=== PATIENT | female | born 1985 | race Caucasian/White ===

== ENCOUNTER → 2019-06-11 07:27 | Outpatient (CLI) | payer OTHER, SELFPAY ==
--- NOTE | ~2019-06-11 | US_ITS ---
EXAMINATION: US right upper quadrant DATE: 06/11/2019 08:12 INDICATION: Nausea and vomiting TECHNIQUE: Multiple grayscale and Doppler ultrasound images of the abdomen were obtained. COMPARISON: None FINDINGS: Abdominal aorta is normal in caliber measuring 1.3 cm proximally, 1.1 cm the mid aorta and tapering t o 0.9 cm at the distal aorta. The pancreas is normal. Liver has normal echogenicity and contour, with a smooth surface. No liver lesion identified. No intrahepatic biliary duct dilation suspected. Conchis l venous flow was seen in the hepatopetal, normal direction and has normal Doppler waveform. Visualiz ed proximal to mid inferior vena cava is normal. There are several small nonmobile peripheral echogen ic nodules measuring up to 3 mm along the gallbladder wall most likely representing gallbladder polyp s. Gallbladder is otherwise normal. No shadowing cholelithiasis. Sonographic Dorman sign was reported as negative by the neighborhood worker. The common bile duct measures 4 mm which is normal. Right kidney rina sures 8.2 x 3.5 x 5.0 cm with normal contour and echogenicity. No hydronephrosis. IMPRESSION: 1. Multiple likely benign <4 mm gallbladder polyps. Otherwise normal right upper quadrant ultrasound. Reviewed, dictated and finalized at location A. IMPRESSION: 1. Multiple likely benign <4 mm gallbladder polyps. Otherwise normal right uppe r quadrant ultrasound.
== END ==
PROVIDERS: PCP Family Medicine; Visit Provider Family Medicine
DX: R11.2 Nausea with vomiting, unspecified (principal); K82.4 Cholesterolosis of gallbladder
CPT/HCPCS: 76705

== ENCOUNTER 2019-07-18 08:37 | Outpatient (CLI) | payer OTHER, SELFPAY ==
--- NOTE | ~2019-07-18 | MR_ITS ---
EXAMINATION: MR brain/brain stem wo con DATE: 07/18/2019 09:25 INDICATION: Headaches and recurrent episodic vomiting. TECHNIQUE: Magnetic resonance imaging (MRI) of the brain and brainstem was performed without intraven ous contrast. Sequences included sagittal and axial T1-weighted SE, axial diffusion-weighted FS SE, a xial T2*-weighted GRE, axial T2-weighted FLAIR, and axial T2-weighted FSE. Apparent diffusion coeffic ient (ADC) maps were created. COMPARISON: None. FINDINGS: There are no areas of restricted diffusion to suggest acute infarction. No intracranial hemorrhage or abnormal intracranial mass lesion. There are no intraparenchymal signal abnormalities seen on the ot her pulse sequences. The ventricles are symmetric and normal in size. There are no abnormal extra-axi al fluid collections. Flow voids are seen in the cerebral arteries on the T2-weighted sequences consi stent with their expected patency. Mild mucoperiosteal thickening in the left frontal and bilateral e thmoid and maxillary sinuses. Visualized orbits and soft tissues are unremarkable. There are no areas of abnormal enhancement on the post contrast images. IMPRESSION: 1. Normal brain. Reviewed, dictated and finalized at location A. IMPRESSION: 1. Normal brain.
== END 2019-07-18 08:38 | disposition home or self-care (01) ==
PROVIDERS: PCP Family Medicine; Visit Provider Family Medicine
DX: R11.2 Nausea with vomiting, unspecified (principal)
CPT/HCPCS: 70551

== ENCOUNTER 2019-08-15 14:53 | Outpatient (CLI) | payer OTHER, SELFPAY ==
[2019-08-15 15:09] LABS: Hematocrit 38.2 % (37.0-47.0); Hemoglobin 12.1 g/dL (12.0-15.0); Mean Corpuscular HGB Conc 31.7 g/dl (32-36); Mean Corpuscular Hemoglobin 26.7 pg (26-34); Mean Corpuscular Volume 84.1 fl (80-100); Platelet Count Result 280 k/mm3 (150-375); Red Blood Count 4.54 M/mm3 (4.2-5.4); Red Cell Distribution Width 13.2 % (11.5-14.5); White Blood Count 14.5 K/mm3 (4.5-10.0)
[2019-08-15 15:20] LABS: Alanine Aminotransferase 22 U/L (4-35); Albumin Level 4.4 g/dL (3.5-5.1); Alkaline Phosphatase 38 U/L (38-126); Aspartate Amino Transferase 25 U/L (14-36); Bilirubin,Total 0.3 mg/dL (0.2-1.3); Blood Urea Nitrogen 10 mg/dL (7-17); Calcium 9.3 mg/dL (8.4-10.2); Carbon Dioxide 25 mmol/L (22-30); Chloride 105 mmol/L (98-107); Estimated Glomerular Filt Rate > 60; Glucose 94 mg/dL (65-105); Potassium 4.1 mmol/L (3.4-5.0); Sodium 137 mmol/L (137-145)
== END 2019-08-15 14:54 | disposition home or self-care (01) ==
PROVIDERS: PCP Family Medicine; Visit Provider Internal Medicine Gastroenterology
DX: R11.0 Nausea (principal)
CPT/HCPCS: 36415; 80053; 85027

== ENCOUNTER 2019-08-26 00:18 | Outpatient (CLI) | payer OTHER, SELFPAY ==
[2019-08-26 17:48] LABS: SARS-CoV-2 RNA PCR Negative
== END 2019-08-26 00:19 | disposition home or self-care (01) ==
LOC: ANHCOVIDDT 00:18
PROVIDERS: PCP Family Medicine; Visit Provider Internal Medicine Gastroenterology
DX: Z01.812 Encounter for preprocedural laboratory examination (principal); Z20.828 Contact with and (suspected) exposure to other viral communicable diseases
CPT/HCPCS: 87635; C9803; U0003

== ENCOUNTER 2019-08-29 01:36 | Day surgery (SDC) | payer OTHER, SELFPAY ==
[2019-08-23 14:38] VITALS: BMI 23.8
[2019-08-29 06:48] VITALS: BP 116/68; PULSE 91; RESP 18; TEMP 36.9; O2SAT 99
[2019-08-29] MEDS: LACTATED RINGERS 1,000 ML 150 ML IV CONT (06:58)
--- NOTE | 2019-08-29 07:44 | P.PNAN_ITS ---
Anes - Initial Pre Proc Eval Procedure: Operation Date: 08/29/19 08:00 Proposed Procedures p Esophagogastroduodenoscopy - Davion Dallas MD Date/Time: 08/29/19 07:44 Surgeon: Davion Dallas MD Pre Op Diagnosis: Vomiting Patient Data Age: 34 Gender: F Height: 5 ft 4 in Weight: 63.1 kg Last Vital Signs Temp 36.9 C 08/29/19 06:48 Pulse 91 08/29/19 06:48 Resp 18 08/29/19 06:48 BP 116/68 08/29/19 06:48 Pulse Ox 99 08/29/19 06:48 Allergies Allergy/AdvReac Type Severity Reaction Status Date / Time No Known Allergies Allergy Unknown Verified 08/29/19 06:45 Home Medications Medication Instructions Recorded Confirmed Type etonogestrel-ethinyl estradiol 1 vag ring VAGINAL MONTHLY 08/23/19 08/23/19 History [NuvaRing] Patient hx anesthesia problems: none Family hx anesthesia problems: none [facility] Past Medical History Medical History (Updated 08/29/19 @ 07:44 by Chano Cano MD) Nausea and vomiting Surgical History Surgical History (Updated 08/29/19 @ 07:45 by Chano Cano MD) History of laparoscopy Anes - Eval Final PreProcedure Day of Procedure 08/29/19 07:44 Patient weight: normal Heart: regular rate and rhythm Lungs: clear to auscultation Airway: Mallampati scale class II Neurological: alert and oriented Last oral intake: >/= 8 hours ASA classification: I Emergent: no Anesthetic plan: proceed Anesthesia type and monitoring: general GIVS and standard monitoring Informed Consent: The patient's anesthetic plan and its attendant risks and benefits were discussed with the patient/family/POA. Questions were solicited and answers provided to the satisfaction of the patient/family/POA.
--- NOTE | 2019-08-29 07:51 | P.CONGI_ITS ---
Assessment and Plan Assessment and plan (1) Vomiting: Code(s): R11.10 - Vomiting, unspecified Status: Acute Assessment and Plan: Recurrent vomiting appears recurrent over the last 1 and half years. Etiology remains unclear. Cannot exclude cyclical vomiting. Plan is to further evaluate with an EGD. Workup today including gallbladder ultrasound laboratory tests are unremarkable. Patient has had difficulty was Zofran causing her to become constipated. We may want to consider brief course of Reglan. Elevating head of bed at night bland foods in the interim. GI Consult Note Consult date/time: 08/29/19 07:51 HPI: Giana Gonzalez is a 34 year old female Seen in evaluation at the request of Dr. Jose Maria Lomax. Patient reports recurrent vomiting intermittently over last 1-1/2 years. She will become nauseated 2 to 3 times a week. Typically lasting for a few hours. She usually vomits at least 1 time a week. Off and on an empty stomach without having any eaten. She denies any bleeding. She denies any fever. She denies any weight loss. Her family history is non contributory. She reports no recent travel. Review of Systems Review of Systems: All systems reviewed & are unremarkable except as noted in HPI and below PMFSH Surgical History Surgical History History of laparoscopy Meds Home Medications and Allergies Home Medications Medication Instructions Recorded Confirmed Type etonogestrel-ethinyl estradiol 1 vag ring VAGINAL MONTHLY 08/23/19 08/23/19 History [NuvaRing] Allergies Allergy/AdvReac Type Severity Reaction Status Date / Time No Known Allergies Allergy Unknown Verified 08/29/19 06:45 Vital Signs Vital Signs - 24 hr 08/29/19 06:48 Temperature 36.9 C Pulse Rate 91 Respiratory Rate 18 Blood Pressure 116/68 Pulse Oximetry 99 Exam Narrative: Exam Narrative: Physical exam reveals patient to be alert. Oriented x3. She is anicteric. Vital signs stable. Lungs are clear to auscultation and percussion. Heart without murmur. Abdomen bowel sounds are present soft nontender with no hepatosplenomegaly. Recent ultrasound of the right upper quadrant revealed the gallbladder polyp less than 4mm size.
[2019-08-29] MEDS: BENZOCAINE (*SP) 60 ML SPRAY CAN (HURRICAINE) 1 SPRAY MUCOUS MEM (08:00)
[2019-08-29 08:18] VITALS: BP 102/59; PULSE 84; RESP 16; O2SAT 99
[2019-08-29 08:28] VITALS: BP 100/60; PULSE 79; RESP 18; O2SAT 99
[2019-08-29 08:38] VITALS: BP 110/71; PULSE 75; RESP 17; O2SAT 100
== END 2019-08-29 08:49 | disposition home or self-care (01) ==
PROVIDERS: PCP Family Medicine; Visit Provider Internal Medicine Gastroenterology
PROC: 0DJ08ZZ Inspection of Upper Intestinal Tract, Via Natural or Artificial Opening Endoscopic (ICD-10-PCS; CPT 43235; principal; 2019-08-29 08:00)
DX: K31.84 Gastroparesis (principal)
CPT/HCPCS: 43235; J2001; J2704; J7120

== ENCOUNTER 2019-10-12 07:23 | Outpatient (CLI) | payer OTHER, SELFPAY ==
--- NOTE | ~2019-10-12 | NM_ITS ---
EXAM: NM gastric emptying study DATE: 10/12/2019 12:42 INDICATION: Nausea. TECHNIQUE: A gastric emptying study was performed using the methodology of Srinivasa BELTRAN, et al. J Nucl Med 2007; 48:568-572. The patient was given a meal consisting of 2 scrambled eggs labeled with 1 mCi Tc-99m sulfur colloid, 2 slices of toast, two packages of jam, and approximately 120 mL of water. Si multaneous anterior and posterior 1-min images of the abdomen were obtained with the patient supine a t multiple time points over a total period of 4 hours. The geometric mean of anterior and posterior v iews was determined, and the percentage retention was calculated for each time point. COMPARISON: None. FINDINGS: Gastric retention of the radiotracer-labeled meal was 58%, 26%, and 8% at the 1-hour, 2-ho ur, and 4-hour time points, respectively. With this technique, apparent rapid gastric emptying is sug gested by <30% gastric retention at 1 hour. Delayed gastric emptying is defined by gastric retention of >90% at 1 hour, >60% retention at 2 hours, or >10% retention at 4 hours. IMPRESSION: 1. Normal gastric emptying. Reviewed, dictated and finalized at location A. IMPRESSION: 1. Normal gastric emptying.
== END 2019-10-12 07:24 | disposition home or self-care (01) ==
LOC: ANHIMG 07:27
PROVIDERS: PCP Family Medicine; Visit Provider Internal Medicine Gastroenterology
DX: R11.0 Nausea (principal)
CPT/HCPCS: 78264; A9541

== ENCOUNTER 2022-07-07 01:31 | Day surgery (SDC) | payer OTHER, SELFPAY ==
[2022-06-26 14:58] VITALS: BMI 22.3
--- NOTE | 2022-06-26 15:03 | PC.NURSE ---
Report to the Outpatient Waiting Room, entrance under the green pavilion located off [facility], at time 0730 on date 07/07/22. Planned Procedure Time: 0930. Time changes happen often and if your time is changed the preop area will call you the afternoon before. - You and your visitor will be asked to self-screen and do not enter if you have any COVID symptoms. - A mask is optional within the hospital at this time. Patients may have clear liquids (water, carbonated beverages, clear teas, apple juice) until 3 hours prior to surgery with a maximum of 20 ounces. - No food from midnight until time of surgery Take the following medications with a SIP of water the morning of surgery: NONE DO NOT STOP ANY OF YOUR OTHER PRESCRIPTION MEDICATIONS PRIOR TO SURGERY EXCEPT THE FOLLOWING Medications to discontinue per physician: VITAMINS Date to take last dose: 07/03/22 Please no make-up, nail uruguayan, hairspray, perfume, deodorant, or body powder the day of surgery. No jewelry (including any body piercings) or valuables the day of surgery, leave them at home. Please take a shower or bath the night before, or the morning of, surgery with an antibacterial soap. Wear comfortable, loose fitting clothing. - Jewelry must be removed prior to entering the operating room. Rings and piercings that are not removed may be cut off. - The hospital will not accept responsibility for valuables. - Please leave all valuables, including medications, at home the day of surgery. If you are going home after surgery, a licensed commercial driver must drive you home. - NO public transportation without another adult if you receive anesthesia. - We recommend that an adult stay with you for 24 hours following discharge. - We also recommend that you do not drive, make important decision, drink alcoholic beverages, or take any drugs that were not prescribed by your health care provider for at least 24 hours after your discharge time. Follow any additional instructions given to you from your surgeon. If you or anyone in your household have experienced Covid symptoms in the past week, please notify your surgeon or the nurse liaison at the phone number below for possible testing. Telephone instructions given to PT - JOSE MANUEL STORM and asked if any additional questions and then verbalized understanding. Patient advised to call surgeon office or pre surgery nurse liaison [phone] if any additional questions.
[2022-07-07] VITALS (8 sets, daily range): BP systolic 95–116; BP diastolic 51–77; PULSE 54–81; RESP 12–20; TEMP 36.5–37; O2SAT 100
--- NOTE | 2022-07-07 07:14 | WPDHPUPDATE1 ---
History and Physical Update Update Date/Time: 07/07/22 07:14 History and Physical has been reviewed, including an updated exam of the patient. There are NO changes in the patient's condition. Risks, benefits, and alternatives have been discussed and questions answered. Patient agrees to proceed with procedure.
--- NOTE | 2022-07-07 07:14 | PM.HPGS ---
History of Present Illness History of Present Illness Consent: Risks, benefits, and alternatives have been discussed and questions answered. Patient agrees to proceed with procedure. Chief complaint: sterilization Narrative: Giana Gonzalez is a 37 year old female who has completed her childbearing and wishes to proceed with sterilization. Risks of infection, bleeding injury to internal organs, and failure with increased risk of ectopic are reviewed. Plan is to proceed with laparoscopic bilateral salpingectomy. Due to her history of prior laparoscopy with endometriosis in 2011 it was discussed that we would possibly just remove a portion of the tube if there is significant scarring. Review of Systems Review of Systems: not repeated day of surgery; patient states no changes in status PMFSH Past Medical History Medical History (Updated 07/07/22 @ 07:17 by Radha Veliz MD) Anxiety and depression (normal spontaneous vaginal delivery) x2 Surgical History Surgical History (Updated 07/07/22 @ 07:16 by Radha Veliz MD) History of laparoscopy endometriosis History of tonsillectomy Family History Family History (Updated 04/07/22 @ 13:26 by Mariel Polk MA) Father Pancreatic cancer Mother No problems noted. Social History Social History (Updated 04/07/22 @ 13:53 by Jose Maria Lomax MD) Years smoked: 16 Smoking status: Former smoker Tobacco type: cigarettes Smoking end date: 06/14/22 Additional smoking assessment comments: Smoked about 5 cigarettes per day for 15 years Alcohol intake: current Drinks per week: 1 Alcohol use details: RARE Substance use: current Substance use type: marijuana Other substance usage details: VERY RARE - FOR SLEEP Lack of Transportation: No Lack of Food: Never True Current Housing: I Have Housing Concerned About Future Housing: No Difficulty Paying Gas/Electric Bills: No Difficulty Paying for Meds: No Currently Unemployed: No Education: Associate Degree Difficulty w/ Childcare or Family Care: No Living arrangements: with family Occupation/Education: occupation Gender identity (if verbalized by the patient): Female Sexual Orientation (if Verbalized by the Patient): Straight or Heterosexual Spiritual care concerns: No Agree to blood products: No Meds Home Medications and Allergies Home Medications Medication Instructions Recorded Confirmed Type etonogestrel 0.12 mg-ethinyl 1 vag ring vaginal MONTHLY 08/23/19 06/26/22 History estradiol 0.015 mg/24 hr vaginal ring (NuvaRing) cholecalciferol (vitamin D3) 50 50 mcg PO DAILY 04/07/22 06/26/22 History mcg (2,000 unit) capsule escitalopram oxalate 10 mg tablet 10 mg PO HS 04/07/22 06/26/22 History Allergies Allergy/AdvReac Type Severity Reaction Status Date / Time No Known Allergies Allergy Unknown Verified 06/26/22 14:57 Exam Const: General: healthy appearing and alert Orientation/consciousness: patient oriented x3 Resp: Effort & Inspection: normal respiratory effort GI: GI Palp: Yes Soft to palpation, No Tenderness to palpation present (GI) and No Palpable mass present : External Female Exam: normal external appearance Speculum Exam - Vagina: normal appearance of the vagina and normal vaginal discharge Speculum Exam - Cervix: normal appearance of the cervix Bimanual exam- vagina & uterus: uterine size normal and consistency normal Bimanual Exam- Adnexa, other: normal adnexae and No adnexal tenderness Neuro: General: patient oriented x3 Assessment and Plan Assessment and plan (1) Encounter for sterilization: Code(s): Z30.2 - Encounter for sterilization Status: Acute Assessment and Plan: plan to proceed with laparoscopic bilateral salpingectomy
--- NOTE | 2022-07-07 08:06 | WPDANESEPPF ---
Anes - Initial Pre Proc Eval Procedure: Operation Date: 07/07/22 09:30 Proposed Procedures p Laparoscopic Bilateral Salpingectomy - Radha Veliz MD Date/Time: 07/07/22 08:06 Surgeon: Radha Veliz MD Pre Op Diagnosis: sterilization Patient Data Age: 37 Gender: F Height: 1.64 m Weight: 60 kg Allergies Allergy/AdvReac Type Severity Reaction Status Date / Time No Known Allergies Allergy Unknown Verified 06/26/22 14:57 Home Medications Medication Instructions Recorded Confirmed Type etonogestrel 0.12 mg-ethinyl 1 vag ring vaginal MONTHLY 08/23/19 06/26/22 History estradiol 0.015 mg/24 hr vaginal ring (NuvaRing) cholecalciferol (vitamin D3) 50 50 mcg PO DAILY 04/07/22 06/26/22 History mcg (2,000 unit) capsule escitalopram oxalate 10 mg tablet 10 mg PO HS 04/07/22 06/26/22 History Patient hx anesthesia problems: none Family hx anesthesia problems: none Results Review: All pre-operative results and documents have been reviewed as part of the pre-operative evaluation. [facility] Past Medical History Medical History Anxiety and depression (normal spontaneous vaginal delivery) x2 Surgical History Surgical History History of laparoscopy endometriosis History of tonsillectomy Family History Family History Father Pancreatic cancer Mother No problems noted. Social History Social History Years smoked: 16 Smoking status: Former smoker Tobacco type: cigarettes Smoking end date: 06/14/22 Additional smoking assessment comments: Smoked about 5 cigarettes per day for 15 years Alcohol intake: current Drinks per week: 1 Alcohol use details: RARE Substance use: current Substance use type: marijuana Other substance usage details: VERY RARE - FOR SLEEP Lack of Transportation: No Lack of Food: Never True Current Housing: I Have Housing Concerned About Future Housing: No Difficulty Paying Gas/Electric Bills: No Difficulty Paying for Meds: No Currently Unemployed: No Education: Associate Degree Difficulty w/ Childcare or Family Care: No Living arrangements: with family Occupation/Education: occupation Gender identity (if verbalized by the patient): Female Sexual Orientation (if Verbalized by the Patient): Straight or Heterosexual Spiritual care concerns: No Agree to blood products: No Anes - Eval Final PreProcedure Day of Procedure 07/07/22 08:06 Patient weight: normal Heart: regular rate and rhythm Lungs: clear to auscultation Airway: Mallampati scale class II Neurological: alert and oriented Last oral intake: >/= 8 hours ASA classification: II Emergent: no Anesthetic plan: proceed Anesthesia type and monitoring: general ETT and standard monitoring Results Review: All pre-operative results and documents have been reviewed as part of the pre-operative evaluation. Informed Consent: The patient's anesthetic plan and its attendant risks and benefits were discussed with the patient/family/POA. Questions were solicited and answers provided to the satisfaction of the patient/family/POA.
[2022-07-07] MEDS: ACETAMINOPHEN 500 MG TABLET 1000 MG PO (08:30)
[2022-07-07] MEDS: KETOROLAC 15 MG/ML VIAL (*BKC) IV PUSH (08:30)
[2022-07-07] MEDS: LACTATED RINGERS 1,000 ML 30 ML IV CONT (08:30)
--- NOTE | 2022-07-07 10:14 | P.OP_ITS ---
Procedure Note - Detailed Date of Procedure 07/07/22 Pre-op Diagnosis sterilization Post-op Diagnosis Same Procedure Performed Laparoscopic bilateral salpingectomies Surgeon Radha Veliz MD Anesthesia General Findings normal-appearing tubes, uterus, ovaries Description of Procedure The patient is taken to the operating room and placed under anesthesia in the dorsal lithotomy position. She was prepped and draped in the usual sterile fashion. Bladder was drained with a red rubber catheter. Fairview speculum was placed in the vagina and the cervix grasped on the anterior lip with a tenaculum. The acorn manipulator was placed and the speculum removed. Attention was turned to the abdomen. A vertical skin incision was made at the base of the umbilicus. The abdomen is tented and the Veress needle placed. Water drop test is normal and opening patient pressure was 6mmHg. Pneumoperitoneum was obtained to a patient pressure of 15mmHg. The 5mm Optiview was placed while tenting the abdomen with towel clamps and intra- abdominal placement was confirmed with the laparoscope. The patient was placed in Trendelenburg and 2 5mm skin incision there made 2cm above symphysis pubis 1 to left 1 to the right. 5Mm trocars were placed under direct visualization. The blunt probe was used to bring the tubes into the visual field. The right tube was grasped with a grasper and using the LigaSure the mesosalpinx is cauterized and cut. The tube was then cross cut as the cornua was reached and the tube removed. The identical procedure was performed the left side. Good hemostasis is noted at all pedicles. The pneumoperitoneum is reduced. All instruments are removed. The skin incisions were closed using 4-0 nylon in an interrupted fashion. Sterile bandages are applied. Vaginal instruments are removed. Patient is awakened from anesthesia and taken to recovery in stable condition. Estimated Blood Loss 5 Drains No Packing No Pathology Yes ( Bilateral tubes) Complications No immediate complications Condition Stable Disposition PACU
[2022-07-07] MEDS: oxyCODONE HCL (*CRX) 5 MG TAB IR PO (11:28)
== END 2022-07-07 12:10 | disposition home or self-care (01) ==
PROVIDERS: PCP Family Medicine; Visit Provider Obstetrics & Gynecology Gynecology
PROC: (CPT 49320; principal; 2022-07-07 09:30)
DX: Z30.2 Encounter for sterilization (principal); F41.8 Other specified anxiety disorders; Z87.891 Personal history of nicotine dependence; F12.90 Cannabis use, unspecified, uncomplicated
CPT/HCPCS: 58661; 88302; A9270; J1100; J1170; J1885; J2250; J2405; J2704; J2710; J3010; J7120

== ENCOUNTER 2023-11-26 07:48 | Emergency (ER) | payer OTHER, SELFPAY ==
--- NOTE | ~2023-11-26 | CT_ITS ---
EXAMINATION: CT abdomen pelvis wo con DATE: 11/26/2023 10:16 INDICATION: Left flank pain. TECHNIQUE: Computed tomography (CT) of the abdomen and pelvis was performed without intravenous contr ast. Automated exposure control and iterative reconstruction technique were employed. The dose-length product was 199.40 mGy-cm. COMPARISON: None. FINDINGS: The visualized portions of the lung bases are clear without pneumonia or pleural effusion. The heart size is normal. No pericardial effusion. The liver, gallbladder, spleen, pancreas, adrenal glands, and right kidney are normal. There is mild left hydronephrosis and hydroureter. There is no u rolithiasis. There is a menstrual cup in the vagina. There are no dilated loops of bowel. The appendi x is normal. There are no pathologically enlarged lymph nodes. There is physiologic fluid in the pelv is. There is mild thoracic and lumbar spondylosis. IMPRESSION: 1. Mild left hydronephrosis and hydroureter secondary to mass effect from the menstrual cup in the va [place]. Reviewed, dictated and finalized at location A. IMPRESSION: 1. Mild left hydronephrosis and hydroureter secondary to mass effect from the m enstrual cup in the vagina.
[2023-11-26 07:51] VITALS: BP 119/80; PULSE 58; RESP 15; TEMP 36.6; O2SAT 100
[2023-11-26] MEDS: KETOROLAC 30 MG/ML VIAL (*BKC) IV PUSH (08:18)
[2023-11-26] MEDS: CYCLOBENZAPRINE HCL 10 MG TABLET PO (08:19)
[2023-11-26 08:25] LABS: Add Urine Microscopic? YES; Appearance Urine Clear (Clear); Bacteria Urine None Seen /hpf; Bilirubin Urine Negative (Negative); Blood Urine 3+ (Negative); Color Urine Yellow (Yellow); Glucose Urine UA Negative (Negative); Ketones Urine Negative (Negative); Leukocyte Esterase Ur Trace LEU/UL (Negative); Nitrate Urine Negative (Negative); Non Pathogenic Casts 0-2; Protein Urine Negative (Negative); Specific Grav Ur 1.003 (1.001-1.035); Squamous Epithelial Cell Urine None Seen /hpf (Few); Urobilinogen Urine 0.2 mg/dL (<2.0); WBC Urine 0-5 /hpf (0-3); pH Urine 7.5 (5.0-9.0)
[2023-11-26 08:30] LABS: Alanine Aminotransferase 15 U/L (6-35); Albumin Level 4.5 g/dL (3.5-5.1); Alkaline Phosphatase 36 U/L (38-126); Anion Gap 10 mmol/L (4-12); Aspartate Amino Transferase 23 U/L (14-36); Bilirubin,Total 0.6 mg/dL (0.2-1.3); Blood Urea Nitrogen 10 mg/dL (7-17); Calcium 9.2 mg/dL (8.4-10.2); Carbon Dioxide 24 mmol/L (22-30); Chloride 104 mmol/L (98-107); Estimated CRCL calculation 65 ml/min; Estimated Glomerular Filt Rate > 60; Glucose 96 mg/dL (65-110); Potassium 3.9 mmol/L (3.4-5.0); Sodium 138 mmol/L (137-145)
[2023-11-26 08:31] LABS: Basophils Absolute Auto 0.1 K/mm3 (0.0-0.1); Eosinophils Absolute Auto 0.3 K/mm3 (0-0.3); Eosinophils Percent Auto 5.4 % (0-4.4); Hematocrit 37.7 % (37.0-47.0); Hemoglobin 11.8 g/dL (12.0-15.0); Immature Granulocyte Absolute 0.03 K/mm3 (0.00-0.031); Immature Granulocyte Percent A 0.6 % (0-0.5); Lymphocytes Absolute Auto 1.52 K/mm3 (0.9-3.2); Lymphocytes Percent Auto 29.3 % (18.3-44.2); Mean Corpuscular HGB Conc 31.3 g/dl (32-36); Mean Corpuscular Hemoglobin 27.2 pg (26-34); Mean Corpuscular Volume 86.9 fl (80-100); Mean Platelet Volume 10.2 fl (7.4-10.4); Monocytes Absolute Auto 0.4 K/mm3 (0.1-0.6); Monocytes Percent Auto 6.8 % (2.6-8.5); Neutrophils Percent Auto 56.9 % (45.5-73.1); Platelet Count Result 244 k/mm3 (150-375); Red Blood Count 4.34 M/mm3 (4.2-5.4); Red Cell Distribution Width 14.9 % (11.5-14.5); White Blood Count 5.2 K/mm3 (4.5-10.0)
--- NOTE | 2023-11-26 09:19 | ED.BACK ---
HPI - Back Pain/Injury General Chief Complaint: Back Pain/Injury Stated Complaint: left flank pain Time Seen by Provider: 11/26/23 07:59 History of Present Illness HPI Narrative: Patient is a 38-year-old female who presents ER with left-sided back pain. Sudden onset this morning. Worse with bending and twisting. Reports she has had increased activity over last couple days. No known trauma. No numbness or tingling going down the leg. No fevers or chills or sweats. Denies abdominal pain/nausea/vomiting. Parents only on her menstrual cycle. Has not had a kidney stone previously. Related Data Home Medications Medication Instructions Recorded Confirmed cholecalciferol (vitamin D3) 50 50 mcg PO DAILY 04/07/22 07/07/22 mcg (2,000 unit) capsule Allergies Allergy/AdvReac Type Severity Reaction Status Date / Time No Known Allergies Allergy Unknown Verified 11/26/23 07:54 Review of Systems Review of Systems: All systems reviewed & are unremarkable except as noted in HPI and below Constitutional: Constitutional: Reports no additional constitutional complaints Cardiovascular: Cardiovascular: Reports no additional cardiovascular complaints Respiratory: Respiratory: Reports no additional respiratory complaints Gastrointestinal: Gastrointestinal: Reports no additional gastrointestinal complaints Musculoskeletal: Musculoskeletal: Reports back pain, Denies arthralgias and Denies joint swelling PMFSH Past Medical History Medical History (Updated 11/26/23 @ 10:44 by Martín Zamora MD) Anxiety and depression Surgical History Surgical History History of laparoscopy endometriosis History of tonsillectomy Family History Family History Father Pancreatic cancer Mother No problems noted. Social History Social History (Updated 11/28/22 @ 14:02 by Kelley Womack RN) Years smoked: 16 Smoking status: Current every day smoker Tobacco type: cigarettes Additional smoking assessment comments: Smoking 3 cig/day Alcohol intake: current Drinks per week: 1 Alcohol use details: RARE Substance use: current Substance use type: marijuana Other substance usage details: VERY RARE - FOR SLEEP Lack of Transportation: No Lack of Food: Never True Current Housing: I Have Housing Concerned About Future Housing: No Difficulty Paying Gas/Electric Bills: No Difficulty Paying for Meds: No Currently Unemployed: No Education: Associate Degree Difficulty w/ Childcare or Family Care: No Living arrangements: with family Occupation/Education: occupation Gender identity (if verbalized by the patient): Female Sexual Orientation (if Verbalized by the Patient): Straight or Heterosexual Spiritual care concerns: No Agree to blood products: No Exam Narrative: GENERAL: Well-appearing, well-nourished, and in no acute distress. HEAD: Normocephalic, atraumatic. ENT: Mucous membranes moist. CHEST: Clear to auscultation. No respiratory distress. HEART: Regular rate and rhythm. Normal peripheral pulses. ABDOMEN: Soft, nontender, nondistended. Back: No midline tenderness of the T/L-spine. There is left paraspinal muscle tenderness at the level of L3 fairly lateral from the midline. EXTREMITIES: Normal range of motion. No edema. SKIN: Warm, dry, no rash. NEURO: Alert and oriented x3. PSYCH: Normal mood and affect. Course Course Emergency Course: 920: Pain treated with Toradol and Flexeril. Cbc unremarkable as is the CMP. Urinalysis with trace blood felt to be contaminant from patient's menstrual cycle. Patient then got up to use restroom in developed severe pain radiating into left lower quadrants will perform CT scan. 1042: Hydroureter caused by menstrual cup obstructing ureter. Patient educated and will remove her menstrual cup resolved issue.
[2023-11-26 09:23] VITALS: BP 103/67; PULSE 52; RESP 16; O2SAT 100
[2023-11-26 10:08] LABS: BEDSIDEPREGUCG Negative (Negative)
== END 2023-11-26 10:48 | disposition home or self-care (01) ==
PROVIDERS: Emergency Provider Emergency Medicine; PCP Family Medicine
DX: F17.210 Nicotine dependence, cigarettes, uncomplicated (principal); M54.9 Dorsalgia, unspecified; N13.4 Hydroureter
CPT/HCPCS: 36415; 74176; 80053; 81001; 81025; 85025; 96374; 99284; A9270; J1885

== ENCOUNTER 2023-12-31 14:17 | Outpatient (CLI) | payer OTHER, SELFPAY ==
--- NOTE | ~2023-12-31 | US_ITS ---
EXAMINATION: US transvaginal INDICATION: Left lower quadrant pain Comparison:Left lower quadrant pain TECHNIQUE: Multiple endovaginal sonographic images of the pelvis performed. FINDINGS: The uterus measures 7.9 x 5.1 x 3.7 cm. The endometrial complex measures 2 mm. The right ovary measures 3.2 x 1.5 x 1.9 cm and the left ovary measures 2.4 x 2.1 x 2.1 cm. There ar e small follicles in each ovary. Normal doppler signal in both ovaries. There is no free fluid in the pelvis. There are no abnormal masses seen on either side. IMPRESSION: 1. Unremarkable pelvic ultrasound. Reviewed, dictated and finalized at location B.
== END 2023-12-31 14:18 | disposition home or self-care (01) ==
LOC: MICIMG 14:18
PROVIDERS: PCP Family Medicine; Visit Provider Advanced Practice Midwife
DX: R10.2 Pelvic and perineal pain (principal); N94.11 Superficial (introital) dyspareunia; N94.6 Dysmenorrhea, unspecified
CPT/HCPCS: 76830

== ENCOUNTER 2024-03-02 13:53 | Outpatient (CLI) | payer OTHER, SELFPAY ==
--- NOTE | ~2024-03-02 | CT_ITS ---
EXAMINATION: CT abdomen pelvis wo/w con DATE: 03/02/2024 14:31 INDICATION: Hydronephrosis. TECHNIQUE: Computed tomography (CT) of the abdomen and pelvis was performed without and with intraven ous contrast using a total of 130 mL Omnipaque-350 intravenous contrast with a double-bolus technique for simultaneous opacification of the renal parenchyma and renal collecting system. Automated exposu re control and iterative reconstruction technique were employed. The dose-length product was 582.98 m Gy-cm. COMPARISON: CT abdomen and pelvis 11/26/2023 FINDINGS: The visualized portions of the lung bases demonstrate minimal atelectasis. No pleural effusion. The h eart size is normal. No pericardial effusion. The liver, gallbladder, spleen, pancreas, and adrenal g lands are normal. There is a 7 mm cyst in right kidney. There is no urolithiasis. Left kidney is norm al. The ureters are not well opacified distally, but are normal. The bladder is normal. There is a 5. 9 cm cyst in right ovary. There are no dilated loops of bowel. The appendix is normal. There are no p athologically enlarged lymph nodes. There is no free intraperitoneal fluid. There is mild thoracic an d lumbar spondylosis. IMPRESSION: 1. No hydronephrosis. 2. 5.9 cm cyst in right ovary, likely benign. Pelvis ultrasound is recommended in 6-12 months. Reviewed, dictated and finalized at location A. K ROLLER
== END 2024-03-02 13:54 | disposition home or self-care (01) ==
LOC: MICIMG 13:54
PROVIDERS: PCP Family Medicine; Visit Provider Urology
DX: N13.30 Unspecified hydronephrosis (principal); N83.201 Unspecified ovarian cyst, right side
CPT/HCPCS: 74178; Q9967

== ENCOUNTER 2024-05-02 08:17 | Outpatient (CLI) | payer OTHER, SELFPAY ==
--- NOTE | ~2024-05-02 | US_ITS ---
EXAMINATION: US pelvic complete w TV DATE: 05/02/2024 08:51 INDICATION: Left ovarian cyst. TECHNIQUE: Multiple transabdominal and transvaginal sonographic images of the pelvis were obtained. COMPARISON: CT abdomen and pelvis 03/02/2024 FINDINGS: TRANSABDOMINAL ULTRASOUND: The uterus measures 8.4 x 4.4 x 4.9 cm. There is no free fluid in the pelvis. TRANSVAGINAL ULTRASOUND: The endometrial complex measures 10 mm in thickness. The right ovary measures 10.9 x 2.3 x 1.7 cm. Th e left ovary measures 2.4 x 2.0 x 2.0 cm. There is normal vascular flow in the ovaries. IMPRESSION: 1. Normal pelvis. Reviewed, dictated and finalized at location A. ATOR IMPRESSION: 1. Normal pelvis.
== END 2024-05-02 08:18 | disposition home or self-care (01) ==
LOC: MICIMG 08:18
PROVIDERS: PCP Family Medicine; Visit Provider Obstetrics & Gynecology Gynecology
DX: N83.202 Unspecified ovarian cyst, left side (principal)
CPT/HCPCS: 76830; 76856

== ENCOUNTER 2025-01-16 16:23 | Outpatient (CLI) | payer OTHER, SELFPAY ==
--- NOTE | ~2025-01-16 | US_ITS ---
US soft tissue head and neck INDICATION: Enlarged lymph nodes TECHNIQUE: Real-time sonographic images of the thyroid gland were obtained. COMPARISON: No prior studies for comparison. FINDINGS: The right thyroid lobe measures 4.4 x 1.2 x 1.3 cm. The left thyroid lobe measures 5 x 1.5 x 1.6 cm. There is diffusely heterogeneous echotexture and echogenicity throughout the thyroid gland. No discrete nodules identified. Mildly increased vascular flow is present. There is a normal-appearing 9 mm lymph node at the isthmus with fatty hilum. No lymphadenopathy is seen. IMPRESSION: 1. Diffusely heterogeneous thyroid without discrete nodule or abnormal vascularity. Reviewed, dictated and finalized at location O. E OPERATOR IMPRESSION: 1. Diffusely heterogeneous thyroid without discrete nodule or abnormal vascula rity.
--- OUTSIDE RECORDS SUMMARY | 2025-01-16 16:30 | XMS_ITS | Clinical Summary ---
Author Organization [facility] Address [address] [place] [id number] Care Team Providers Care Recreational Specialist Name Role Phone Radha Veliz MD Unavailable [phone] Jose Maria Lomax MD Primary Care Provider [phone] Allergies No known active allergies Medications escitalopram (LEXAPRO) 10 mg tablet Take 1 tablet (10 mg total) by mouth daily 06/15/2023 Active vitamin D3-vitamin K2 25 mcg (1,000 unit)-90 mcg tablet,disintegr ating Take by mouth Active metoclopramide (REGLAN) 10 mg tablet Take 1 tablet (10 mg total) by mouth 4 (four) times a day Active Active Problems No known active problems Immunizations Immunization Administration Dates Next Due Influenza, Quadrivalent, Split, Intramuscular Influenza, Quadrivalent, Spl it, Preservative Free, Intramuscular 02/16/2022 Surgical History Surgery Date Site/Laterality Comments TONSILLECTOMY 03/16/1997 - 03/15/1998 TUBAL LIGATION 03/16/2022 - 03/15/2023 Medical History Medical History Date Comments Depression Family History Medical History Relation Name Comments Pancreatic cancer Father Colon cancer Paternal Grandfather Prostate cancer Paternal Grandfather Relation Name Status Comments Father Paternal Grandfather Social History Tobacco Use Types Packs/Day Years Used Date Smoking Tobacco: Former Cigarettes Tobacco Cessation:Counseling Given: Not Answered AUDIT-C Answer Date Recorded Q1: How often do you have a drink containing alc ohol? Monthly or less 06/22/2023 Q2: How many drinks containi ng alcohol do you have on a typical day when you are drinking? 1 or 2 06/22/2023 Q3: How often do you have si x or more drinks on one occasion? Less than monthly 06/22/2023 Comments No Sex and Gender Information Value Date Recorded Sex Assigned at Not on file Legal Sex Female 6:55 AM EMERGENCY ROOM SPECIALIST Gender Identity Not on file Sexual Orientation Not on file Last Filed Vital Signs Vital Sign Reading Time Taken Comments Blood Pressure - - Pulse - - Temperature - - Respiratory Rate - - Oxygen Saturation - - Inhaled Oxygen Concentration - - Weight 56.7 kg (125 lb) 01/25/2024 2:10 PM EMERGENCY ROOM SPECIALIST Height 162.6 cm (5' 4) 01/25/2024 2:10 PM EMERGENCY ROOM SPECIALIST Body Mass Index 21.46 01/25/2024 2:10 PM EMERGENCY ROOM SPECIALIST Plan of Treatment Health Maintenance Due Date Last Done Comments Cervical Cancer Screening 1987 Depression Screening 1987 Hepatitis C Screening 1987 DTaP/Tdap/Td Vaccine (1 - Tdap) 05/18/1998 Varicella Vaccines (1 of 2 - 13+ 2-dose series) 05/18/2000 Hepatitis B Screening 05/18/2005 Regular Well Visit/Exam 18-64 05/18/2005 HPV Vaccines (1 - 3-dose SCDM series) 05/18/2014 Covid-19 Vaccine ( season) 2024 02/16/2022, 02/02/2021, 05/15/2020, Additional history exists Influenza Vaccine (#1) 2024 02/16/2022, 2020 Pneumococcal vaccine <65 Aged Out No longer eligible based on patient's age to complete this topic Insurance [employer] Care Teams Recreational Specialist Relationship Specialty Start Date End Date Jose Maria Lomax MD [address] [place] [id number] PCP - General Family Medicine 06/02/23 Radha Veliz MD [address] [address] Referring Physician Gynecology 04/15/23
== END 2025-01-16 16:24 | disposition home or self-care (01) ==
PROVIDERS: PCP Family Medicine
DX: R59.0 Localized enlarged lymph nodes (principal)
CPT/HCPCS: 76536

== ENCOUNTER 2025-03-01 12:34 | Emergency (ER) | payer OTHER, SELFPAY ==
[2025-03-01 12:49] VITALS: BP 114/73; PULSE 73; RESP 16; TEMP 37.1; O2SAT 100
--- OUTSIDE RECORDS SUMMARY | 2025-03-01 14:28 | XMS_ITS | Clinical Summary ---
Author Organization [facility] Address [address] [place] [id number] Care Team Providers Care Graduate Assistant Name Role Phone Radha Veliz MD Unavailable [phone] Jose Maria Lomax MD Primary Care Provider [phone] Allergies No known active allergies Medications escitalopram [...] on file Legal Sex Female 6:55 AM SENIOR ACCOUNT REPRESENTATIVE Gender Identity Not on file Sexual Orientation Not on file Last Filed Vital Signs Vital Sign Reading Time Taken Comments Blood Pressure - - Pulse - - Temperature - - Respiratory Rate - - Oxygen Saturation - - Inhaled Oxygen Concentration - - Weight 56.7 kg (125 lb) 01/25/2024 2:10 PM SENIOR ACCOUNT REPRESENTATIVE Height 162.6 cm (5' 4) 01/25/2024 2:10 PM SENIOR ACCOUNT REPRESENTATIVE Body Mass Index 21.46 01/25/2024 2:10 PM SENIOR ACCOUNT REPRESENTATIVE Plan of Treatment Health Maintenance Due Date [...] Insurance [employer] Care Teams Graduate Assistant Relationship Specialty Start Date End Date Jose Maria Lomax MD [address] [place] [id number] PCP - General Family Medicine 06/02/23 Radha Veliz MD [address] [address] Referring Physician Gynecology 04/15/23
[2025-03-01 14:59] LABS: Add Urine Microscopic? NO; Appearance Urine Clear (Clear); Glucose Urine UA Negative (Negative); Leukocyte Esterase Ur Negative LEU/UL (Negative); Nitrate Urine Negative (Negative); Specific Grav Ur 1.020 (1.001-1.035)
[2025-03-01 15:07] LABS: Alanine Aminotransferase 18 U/L (6-35); Albumin Level 4.6 g/dL (3.5-5.1); Alkaline Phosphatase 50 U/L (38-126); Anion Gap 8 mmol/L (4-12); Aspartate Amino Transferase 22 U/L (14-36); Bilirubin,Total 0.4 mg/dL (0.2-1.3); Blood Urea Nitrogen 9 mg/dL (7-17); Calcium 9.6 mg/dL (8.4-10.2); Carbon Dioxide 23 mmol/L (22-30); Chloride 106 mmol/L (98-107); Estimated CRCL calculation 64 ml/min; Estimated Glomerular Filt Rate > 60; Glucose 84 mg/dL (65-110); Lipase 107 U/L (23-300); Potassium 3.8 mmol/L (3.4-5.0); Sodium 137 mmol/L (137-145); Total Protein 7.6 g/dL (6.3-8.2)
[2025-03-01 15:09] LABS: Hematocrit 39.3 % (37.0-47.0); Hemoglobin 12.7 g/dL (12.0-15.0); Immature Granulocyte Percent A 0.3 % (0-0.5); Lymphocytes Absolute Auto 2.11 K/mm3 (0.9-3.2); Mean Corpuscular HGB Conc 32.3 g/dl (32-36); Mean Corpuscular Hemoglobin 28.8 pg (26-34); Mean Corpuscular Volume 89.1 fl (80-100); Nucleated Red Blood Cells Absolute Auto 0.000 K/mm3 (0.0-0.012); Nucleated Red Blood Cells Perc 0.0 % (0.0-0.2); Platelet Count Result 265 k/mm3 (150-375); Red Blood Count 4.41 M/mm3 (4.2-5.4); White Blood Count 6.9 K/mm3 (4.5-10.0)
--- NOTE | 2025-03-01 15:40 | ED.GENADULT ---
HPI - General Adult General Chief complaint: Nausea/Vomiting/Diarrhea Stated complaint: N/V/D INT FOR MONTHS Time Seen by Provider: 03/01/25 14:36 History of Present Illness HPI narrative: 39-year-old female presents to the emergency department for evaluation for persistent nausea vomiting and diarrhea. Patient reports she has had multiple stool cultures. Patient does have follow-up scheduled with GI. Patient states that the symptoms are intermittent but she has had weight loss over the last few months. Patient states she has been decreasing her ibuprofen use. Patient states that she does intermittently use THC but has no prior diagnosis of cannabinoid hyperemesis syndrome. Patient denies any other significant past medical history. Related Data Home Medications ?Medication ?Instructions ?Recorded ?Confirmed ?Last Taken ?Type cholecalciferol (vitamin D3) 50 50 mcg PO DAILY 04/07/22 02/06/25 Unknown History mcg (2,000 unit) capsule ferrous sulfate 325 mg (65 mg 325 mg PO DAILY 12/15/23 02/06/25 Unknown History iron) tablet (Torrie-Time) B-complex with vitamin C 1 cap PO DAILY 02/06/25 02/06/25 Unknown History Bacillus coagulans-inulin 1 cap PO 02/06/25 02/06/25 Unknown History billion cell-250 mg capsule (Probiotic with Prebiotic) Allergies Allergy/AdvReac Type Severity Reaction Status Date / Time No Known Allergies Allergy Unknown Verified 03/01/25 12:35 Review of Systems Review of Systems: All systems reviewed & are unremarkable except as noted in HPI and below PMFSH Past Medical History Medical History (Updated 03/01/25 @ 16:57 by Johan Ibrahim MD) Gastroparesis Endometriosis Anxiety and depression Surgical History Surgical History History of tubal ligation June 2022 History of tonsillectomy History of laparoscopy endometriosis Family History Family History Father Pancreatic cancer Mother No problems noted. Social History Social History (Updated 02/06/25 @ 16:13 by Mariel Polk MA) Years smoked: 16 Smoking status: Never smoker Tobacco type: cigarettes Additional smoking assessment comments: Smoking 3 cig/day Alcohol intake: current Drinks per week: 1 Alcohol use details: RARE Substance use: current Substance use type: marijuana Other substance usage details: VERY RARE - FOR SLEEP Lack of Transportation: No Lack of Food: Never True Current Housing: I Have Housing Concerned About Future Housing: No Difficulty Paying Gas/Electric Bills: No Difficulty Paying for Meds: No Currently Unemployed: No Education: Associate Degree Difficulty w/ Childcare or Family Care: No Living arrangements: with family Occupation/Education: occupation Gender identity (if verbalized by the patient): Female Sexual Orientation (if Verbalized by the Patient): Straight or Heterosexual Spiritual care concerns: No Agree to blood products: No Exam Narrative: APPEARANCE: Well appearing, no pain, no distress, well-nourished. HEAD: normocephalic, atraumatic. EYES: PERRLA/EOMI, conjunctivae clear. NOSE: Normal no drainage EARS:TMS clear with good light reflex. THROAT: Pharynx clear, no exudate. NECK: Supple. No adenopathy, no masses. RESPIRATORY: Airway patent, respirations nonlabored. Clear to auscultation bilaterally, no rales, rhonchi, wheezing. CARDIOVASCULAR: Regular rate and rhythm without murmurs rubs or gallops. ABDOMINAL: Soft, nontender, nondistended, normal bowel sounds MUSCULOSKELETAL: Moves all extremities. Strength/ROM intact, No edema, No calf tenderness. NEURO: Alert. Cranial nerves II through XII intact. Good gait. Good coordination SKIN: Warm, dry. Normal Color Course Vital Signs Vital signs: Vital Signs Temperature 98.7 F 03/01/25 12:49 Pulse Rate 73 03/01/25 12:49 Respiratory Rate 16 03/01/25 12:49 Blood Pressure 114/73 03/01/25 12:49 Pulse Oximetry 100 03/01/25 12:49 Oxygen Delivery Room Air 03/01/25 12:49 Temperature 98.7 F 03/01/25 12:49 Pulse Rate 68 03/01/25 17:16 Respiratory Rate 16 03/01/25 17:16 Blood Pressure 123/86 03/01/25 17:16 Pulse Oximetry 100 03/01/25 17:16 Oxygen Delivery Room Air 03/01/25 12:49 MDM MDM Narrative Medical decision making narrative: 39-year-old female presents to the emergency department for evaluation the remaining for nausea vomiting. Patient is currently afebrile no leukocytosis hemoglobin 12.7. Patient has no acute abnormalities on her CMP including normal kidney function urine was negative for infection. Patient was treated with IV fluids, IV Protonix and IM Haldol. On re-evaluation patient states he does feel significantly improved. Patient does have follow-up scheduled with GI and it is March. Patient was advised to refrain from THC as some of her underlying symptoms may be secondary to cannabis hyperemesis syndrome. Differential Diagnosis Differential Diagnosis: Gastritis, esophagitis, cannabinoid hyperemesis syndrome, C diff Lab Data MDM Lab Attestation statement: I personally reviewed the patient's lab results. 03/01/25 14:49 03/01/25 14:49 Labs: Lab Results 03/01/25 03/01/25 03/01/25 Range/Units 14:44 14:49 15:48 WBC 6.9 (4.5-10.0) K/mm3 RBC 4.41 (4.2-5.4) M/mm3 Hgb 12.7 (12.0-15.0) g/dL Hct 39.3 (37.0-47.0) % MCV 89.1 (80-100) fl MCH 28.8 (26-34) pg MCHC 32.3 (32-36) g/dl RDW 12.6 (11.5-14.5) % Plt Count 265 (150-375) k/mm3 MPV 9.9 (7.4-10.4) fl Immature Gran % (Auto) 0.3 (0-0.5) % Neut % (Auto) 61.1 (45.5-73.1) % Lymph % (Auto) 30.7 (18.3-44.2) % [place] % (Auto) 5.2 (2.6-8.5) % Eos % (Auto) 2.0 (0-4.4) % Baso % (Auto) 0.7 (0.2-1.2) % Lymph # (Auto) 2.11 (0.9-3.2) K/mm3 [place] # (Auto) 0.4 (0.1-0.6) K/mm3 Eos # (Auto) 0.1 (0-0.3) K/mm3 Baso # (Auto) 0.1 (0.0-0.1) K/mm3 Abs Immat Gran (auto) 0.02 (0.00-0.031) K/mm3 Absolute Neuts (auto) 4.2 (1.3-6.7) K/mm3 Absolute Nucleated RBC 0.000 (0.0-0.012) K/mm3 Nucleated RBC % 0.0 (0.0-0.2) % Sodium 137 (137-145) mmol/L Potassium 3.8 (3.4-5.0) mmol/L Chloride 106 (98-107) mmol/L Carbon Dioxide 23 (22-30) mmol/L Anion Gap 8 (4-12) mmol/L BUN 9 (7-17) mg/dL Creatinine 0.81 (0.7-1.0) mg/dL Estim Creat Clear Calc 64 ml/min Estimated GFR > 60 (59 - ) Glucose 84 (65-110) mg/dL Calcium 9.6 (8.4-10.2) mg/dL Total Bilirubin 0.4 (0.2-1.3) mg/dL AST 22 (14-36) U/L ALT 18 (6-35) U/L Alkaline Phosphatase 50 (38-126) U/L Total Protein 7.6 (6.3-8.2) g/dL Albumin 4.6 (3.5-5.1) g/dL Lipase 107 (23-300) U/L Urine Color Yellow (Yellow) Urine Appearance Clear (Clear) Urine pH 6.0 (5.0-9.0) Ur Specific [place] 1.020 (1.001-1.035) Urine Protein Negative (Negative) mg/dL Urine Glucose (UA) Negative (Negative) mg/dL Urine Ketones 1+ H (Negative) mg/dL Ur Blood (Man) Negative (Negative) Urine Nitrate Negative (Negative) Urine Bilirubin Negative (Negative) Urine Urobilinogen 0.2 (<2.0) mg/dL Leukocyte Esterase Rfl Negative (Negative) YG/UL POC Urine HCG, Qual Negative (Negative) Discharge Plan Discharge Clinical Impression: Nausea & vomiting Patient Disposition: Home Condition: Stable Instructions: Antibiotic Form, Clear Liquid Diet (ED), Acute Nausea and Vomiting (ED) Additional Instructions: clear liquid diet for the next few days. Zofran for nausea control. Reglan as needed for additional nausea control. Omeprazole as directed for the next 14 days to decrease your stomach acid. Advanced to bland diet as tolerated. Continue to educate yourself on cannabinoid hyperemesis syndrome. Have close follow-up with GI as scheduled. If you have any worsening symptoms and please call or return to the emergency department. Patient Language: Slovak Prescriptions: New omeprazole 20 mg capsule,delayed release(DR/EC) 20 mg PO DAILY 14 Days Qty: 14 0RF ondansetron 4 mg tablet,disintegrating 4 mg PO Q8H PRN (Reason: nausea and vomiting) Qty: 14 0RF metoclopramide HCl [Reglan] 10 mg tablet 10 mg PO Q6H PRN (Reason: nausea and vomiting) Qty: 14 0RF No Action cholecalciferol (vitamin D3) 50 mcg (2,000 unit) capsule 50 mcg PO DAILY escitalopram oxalate 10 mg tablet See Rx Instructions .ROUTE .COMPLEX Qty: 90 1RF Dose Instruction: TAKE 1 TABLET BY MOUTH EVERY DAY Rx Instructions: TAKE 1 TABLET BY MOUTH EVERY DAY B-complex with vitamin C Capsule 1 cap PO DAILY Probiotic with Prebiotic 1 billion-250 cell-mg capsule PO mirtazapine 15 mg tablet 15 mg PO QHS Qty: 30 0RF ferrous sulfate [Torrie-Time] 325 mg (65 mg iron) tablet 325 mg PO DAILY Follow-up/Referrals: Jose Maria Lomax MD [Primary Care Provider, Family Practice] Jeovany Cooper MD [Physician, Gastroenterology]
[2025-03-01] MEDS: PANTOPRAZOLE SODIUM IV 40 MG VIAL IV PUSH (15:47)
[2025-03-01] MEDS: LACTATED RINGERS 1,000 ML 999 ML IV CONT (15:47)
[2025-03-01] MEDS: HALOPERIDOL LACTATE 5 MG/ML VIAL IM (15:47)
[2025-03-01 16:02] LABS: BEDSIDEPREGUCG Negative (Negative)
[2025-03-01 17:16] VITALS: BP 123/86; PULSE 68; RESP 16; O2SAT 100
--- OUTSIDE RECORDS SUMMARY | 2025-03-01 17:41 | XMS_ITS | Clinical Summary ---
Author Organization [facility] Address [address] [place] [phone] Care Team Providers Care Manager Video Games Name Role Phone Radha Veliz MD Unavailable [phone] Jose Maria Lomax MD Primary Care Provider [phone] Allergies No known active allergies Medications escitalopram [...] on file Legal Sex Female 6:55 AM MOUNTAIN BIKE GUIDE Gender Identity Not on file Sexual Orientation Not on file Last Filed Vital Signs Vital Sign Reading Time Taken Comments Blood Pressure - - Pulse - - Temperature - - Respiratory Rate - - Oxygen Saturation - - Inhaled Oxygen Concentration - - Weight 56.7 kg (125 lb) 01/25/2024 2:10 PM MOUNTAIN BIKE GUIDE Height 162.6 cm (5' 4) 01/25/2024 2:10 PM MOUNTAIN BIKE GUIDE Body Mass Index 21.46 01/25/2024 2:10 PM MOUNTAIN BIKE GUIDE Plan of Treatment Health Maintenance Due Date [...] Insurance [employer] Care Teams Manager Video Games Relationship Specialty Start Date End Date Jose Maria Lomax MD [address] [place] [id number] PCP - General Family Medicine 06/02/23 Radha Veliz MD [address] [address] Referring Physician Gynecology 04/15/23
== END 2025-03-01 17:17 | disposition home or self-care (01) ==
PROVIDERS: Emergency Provider Emergency Medicine; PCP Family Medicine
DX: R11.2 Nausea with vomiting, unspecified (principal); Z79.899 Other long term (current) drug therapy
CPT/HCPCS: 36415; 80053; 81003; 81025; 83690; 85025; 96361; 96372; 96374; 99284; J1630; J2470; J7120